=== PATIENT | female | born 1990 | race Caucasian/White ===

== ENCOUNTER 2020-09-03 21:01 | Emergency (ER) | payer MEDICAID ==
[~2020-09-03] VITALS: Ht 165.1 cm; Wt 65.8 kg
[2020-09-03 21:04] VITALS: BP 142/90
--- NOTE | 2020-09-03 21:07 | NUR ---
TO LOBBY A/W BED AMBULATORY
[2020-09-03 21:39] LABS: APPEARANCE,URINE CLEAR (CLEAR); BILIRUBIN,URINE NEGATIVE (NEGATIVE); BLOOD, URINE 1+ (NEGATIVE); COLOR,URINE YELLOW (YELLOW); LEUKOCYTE ESTERASE ,URINE NEGATIVE (NEGATIVE); NITRITE, URINE NEGATIVE (NEGATIVE); PH,URINE 6.5 (5.0-9.0); UGLUCOSE NEGATIVE (NEGATIVE)
[2020-09-03 22:00] LABS: RBC,URINE NONE SEEN /HPF (0-5); WBC,URINE NONE SEEN /HPF (0-5)
--- NOTE | 2020-09-03 22:06 | NUR ---
PT AMBULATED TO BED 5
--- NOTE | 2020-09-03 22:10 | NUR ---
PT. IS A 30 Y/O FEMALE THAT CAME INTO ED WITH C/O OF URINARY BURNING. PT. STATES THAT IT STARTED 3 DAYS AGO WITH BURNING UPON URINATION, FREQUENCY OF URINATING, AND NOW AT THIS TIME LOWER BACK PAIN. PT. RATES PAIN AT 7/10 ON THE PAIN SCALE AT THIS TIME. DENIES N/V/D; SKIN IS PINK/WARM/DRY; AAOX4 WITH EVEN AND STEADY GAIT; HR EVEN AND REGULAR; PT DENIES ANY FEVER, CP, SOB, OR COUGH AT THIS TIME; VSS; PATIENT SITTING ON BED COMFORTABLY; HOB ELEVATED; BEDRAILS UP X1; BED DOWN. ER MADE AWARE OF PT STATUS. PMH: DENIES ALLERGIES: NKA
--- NOTE | 2020-09-03 22:18 | NUR ---
Dr. Steiner examining patient.
[2020-09-03] MEDS ORDERED: cephALEXin 500 MG CAP PO ONE (22:25)
[2020-09-03] MEDS ORDERED: PHENAZOPYRIDINE 100 MG TAB PO ONE (22:25)
[2020-09-03] MEDS ORDERED: IBUPROFEN 800 MG TAB PO ONE (22:25)
--- NOTE | 2020-09-03 22:30 | NUR ---
PT. SITTING COMFORTABLY IN BED, WITH PHONE IN HAND. WAITING FOR DISPOSITON.
[2020-09-03] MEDS ORDERED: PHEN-1877 PO (23:24)
[2020-09-03] MEDS ORDERED: CEPH-588 PO (23:24)
[2020-09-03 23:36] VITALS: BP 142/90
--- NOTE | 2020-09-03 23:36 | NUR ---
Patient discharged with v/s stable. Written and verbal after care instructions given and explained. Patient alert, oriented and verbalized understanding of instructions. Ambulatory with steady gait. All questions addressed prior to discharge. ID band removed. Patient advised to follow up with PMD. Rx of KEFLEX AND PYRIDIUM given. Patient educated on indication of medication including possible reaction and side effects. Opportunity to ask questions provided and answered.
== END 2020-09-03 23:36 | disposition home or self-care (01) ==
LOC: MED 21:01
DX: N39.0 Urinary tract infection, site not specified (principal)
CPT/HCPCS: 81001; 81025; 99284